=== PATIENT | male | born 1965 | race African-American/Black ===

== ENCOUNTER 2017-10-28 14:49 | Inpatient (IN) | payer OTHER ==
[2017-10-28 17:11] VITALS: BMI 22.2
--- NOTE | 2017-10-28 17:33 | HP ---
CIWA Score - CIWA Score Nausea/Vomitin-No Nausea/No Vomiting Muscle Tremors: 3 Anxiety: 3 Agitation: 3 Paroxysmal Sweats: 3 Orientation: 2-Disoriented Date<2 days Tacttile Disturbances: 1-Very Mild Itch/Numbness Auditory Disturbances: 0-None Visual Disturbances: 0-None Headache: 0-None Present CIWA-Ar Total Score: 15 Admission ROS BHS - HPI Chief Complaint: " I am here for detox/rehab" Allergies/Adverse Reactions: Allergies Allergy/AdvReac Type Severity Reaction Status Date / Time No Known Allergies Allergy Verified 10/28/17 17:26 History of Present Illness: 52 year old with a thirty year history of alcohol and substance abuse presents here today requesting detox from alcohol and cocaine". Pt has a prior episode of detox here at [facility], states he also had rehab at [facility] about 41/2 yrs ago. states he was once sober for 6years when his grandfather passed and he was going to latter day. last drink (crazy horse beer) was 1/2 hour ago Has a hx of HTN. Exam Limitations: No Limitations - Ebola screening Have you traveled outside of the country in the last 21 days: No Have you had contact with anyone from an Ebola affected area: No Have you been sick,other than usual withdrawal symptoms: No Do you have a fever: No - Review of Systems Constitutional: No Symptoms Reported EENT: reports: No Symptoms Reported Respiratory: reports: Cough Cardiac: reports: No Symptoms Reported, Lightheadedness GI: reports: No Symptoms Reported : reports: No Symptoms Reported Musculoskeletal: reports: Other (R leg pain s/p fell 1 hr ago) Integumentary: reports: Dryness, Sweating Neuro: reports: No Symptoms reported Endocrine: reports: [place] Hematology: reports: No Symptoms Reported Psychiatric: reports: Anxious Patient History - Patient Medical History Hx Anemia: Yes Hx Asthma: No Hx Chronic Obstructive Pulmonary Disease (COPD): No Hx Cancer: No Hx Cardiac Disorders: Yes (heart murmur) Hx Congestive Heart Failure: No Hx Hypertension: Yes (Lisinopril 40mg, norvasc 10mg, clonidine 0.1mg) Hx Hypercholesterolemia: No Hx Pacemaker: No HX Cerebrovascular Accident: No Hx Seizures: No Hx Dementia: No Hx Diabetes: No Hx Gastrointestinal Disorders: No Hx Liver Disease: No Hx Genitourinary Disorders: No Hx Sexually Transmitted Disorders: No Hx Renal Disease (ESRD): No Hx Thyroid Disease: No Hx Human Immunodeficiency Virus (HIV): No Hx Hepatitis C: No Hx Depression: Yes Hx Suicide Attempt: Yes (Currently Denies SI/HI. ) Hx Bipolar Disorder: Yes (Haldol 10mg) Hx Schizophrenia: Yes (cogentin ) - Patient Surgical History Past Surgical History: Yes Hx Neurologic Surgery: No Hx Cataract Extraction: No Hx Cardiac Surgery: No Hx Lung Surgery: Yes (b/l chest tube placement x 12 years ago s/p lung collapse) Hx Breast Biopsy: No Hx Abdominal Surgery: No Hx Appendectomy: No Hx Cholecystectomy: No Hx Genitourinary Surgery: No Hx Section: No Hx Orthopedic Surgery: No Hx Hysterectomy: No Anesthesia Reaction: No - PPD History Previous Implant?: Yes (states he took TB tx -) Documented Results: Positive w/o proof PPD to be Administered?: No - Reproductive History Patient is a Female of Child Bearing Age (11 -55 yrs old): No - Smoking Cessation Smoking history: Current every day smoker Have you smoked in the past 12 months: Yes Aproximately how many cigarettes per day: 20 Hx Chewing Tobacco Use: No Initiated information on smoking cessation: Yes 'Breaking Loose' booklet given: 10/28/17 - Substance & Tx. History Hx Alcohol Use: Yes Hx Substance Use: Yes Substance Use Type: Alcohol (Beer 6 (12oz cans)), Cocaine (2 bags twice a wk) Family Disease History - Family Disease History Family Disease History: Other: Grandparent (HTN), Father (gunshot), Mother ( Alcoholism), Sister (Aneurysm) Admission Physical Exam [facility] - Vital Signs Vital Signs: Vital Signs - 24 hr 10/28/17 17:06 Temperature 98.8 F Pulse Rate 110 H Respiratory 18 Rate Blood Pressure 180/110 - Physical General Appearance: Yes: Disheveled, Moderate Distress, Thin, Irritable HEENTM: Yes: Nasal Congestion Respiratory: Yes: Chest Non-Tender, Lungs Clear, No Accessory Muscle Use Neck: Yes: No masses,lesions,Nodules Breast: Yes: Breast Exam Deferred Cardiology: Yes: Regular Rate, S1, S2 Abdominal: Yes: Normal Bowel Sounds, Non Tender Genitourinary: Yes: Within Normal Limits Back: Yes: Normal Inspection Musculoskeletal: Yes: Gait Steady, Other (R leg pain) Extremities: Yes: Within Normal Limits Neurological: Yes: Within Normal Limits Integumentary: Yes: Normal Color, Dry, Warm Lymphatic: Yes: Within Normal Limits - Diagnostic (1) Alcohol dependence with uncomplicated withdrawal Current Visit: Yes Status: Acute (2) Cocaine dependence, uncomplicated Current Visit: Yes Status: Acute (3) HTN (hypertension) Current Visit: Yes Status: Acute (4) Nicotine dependence Current Visit: Yes Status: Acute Cleared for Admission S - Detox or Rehab [facility] Level of Care: Medically Managed Detox Regimen/Protocol: Valium S Breath Alcohol Content Breath Alcohol Content: 0 Urine Drug Screen - Results Drug Screen Negative: No Urine Drug Screen Results: GEREMIAS-Cocaine, BZO-Benzodiazepines
[2017-10-28] MEDS ORDERED: P-EPHED 60MG/TRIPROLIDI 2.5MG TABLET PO PRN (18:01)
[2017-10-28] MEDS ORDERED: LOPERAMIDE HCL 2 MG CAPSULE PO PRN (18:01)
[2017-10-28] MEDS ORDERED: MAGNESIUM CITRATE 300 ML BOTTLE PO PRN (18:01)
[2017-10-28] MEDS ORDERED: diazePAM 5 MG TABLET PO ONE (18:01)
[2017-10-28] MEDS ORDERED: MENTHOL/PHENOL 1 EACH UD MM PRN (18:01)
[2017-10-28] MEDS ORDERED: diazePAM 5 MG TABLET PO PRN (18:01)
[2017-10-28] MEDS ORDERED: MAG HYDROX/AL HYDROX/SIMETH 30 ML UNIT-DOSE CUP PO PRN (18:01)
[2017-10-28] MEDS ORDERED: IBUPROFEN 400 MG TABLET (FP) PO PRN (18:01)
[2017-10-28] MEDS ORDERED: guaiFENesin/D-METHORPHAN HB 10 ML UNIT-DOSE CUPS PO PRN (18:01)
[2017-10-28] MEDS ORDERED: ACETAMINOPHEN 325 MG TABLET (FP) PO PRN (18:01)
[2017-10-28] MEDS ORDERED: MAGNESIUM HYDROX 2400MG/30ML ORAL SUSPENSION 30 ML CUP PO PRN (18:01)
[2017-10-28] MEDS ORDERED: LISINOPRIL 20 MG TABLET (FP) PO ONE (18:30)
[2017-10-28] MEDS ORDERED: amLODIPine BESYLATE 10 MG TABLET (FP) PO ONE (18:30)
[2017-10-28 22:26] LABS: URINE APPEARANCE CLEAR; URINE BILIRUBIN NEGATIVE (NEGATIVE); URINE BLOOD 3+ (NEGATIVE); URINE COLOR STRAW; URINE GLUCOSE (UA) NEGATIVE (NEGATIVE); URINE KETONE NEGATIVE (NEGATIVE); URINE LEUK ESTERASE NEGATIVE (NEGATIVE); URINE NITRITE NEGATIVE (NEGATIVE); URINE UROBILINOGEN NEGATIVE mg/dL (0.2-1.0)
[2017-10-28 22:27] LABS: URINE PROTEIN 1+ (NEGATIVE)
[2017-10-28 22:31] LABS: EPI CELLS RARE /HPF (FEW); URINE BACTERIA RARE /hpf (NONE SEEN)
[2017-10-28] MEDS: THIAMINE HCL 100 MG TABLET (FP) PO SCH (22:31)
[2017-10-28] MEDS: diazePAM 5 MG TABLET PO SCH (22:32)
[2017-10-29] MEDS: diazePAM 5 MG TABLET PO SCH ×3 (05:20→23:10)
[2017-10-29] MEDS ORDERED: cloNIDine HCL 0.1 MG TABLET PO ONE (07:30)
[2017-10-29] MEDS ORDERED: LISINOPRIL 20 MG TABLET (FP) PO SCH (10:00)
[2017-10-29] MEDS ORDERED: amLODIPine BESYLATE 10 MG TABLET (FP) PO SCH (10:00)
[2017-10-29] MEDS ORDERED: PRENATAL VITAMINS W/ FOLIC ACID TABLET (FP) PO SCH (10:00)
[2017-10-29 10:18] LABS: HEMATOCRIT 40.4 % (35.4-49); MCH 28.9 pg (25.7-33.7); MCHC 32.1 g/dl (32.0-35.9); MEAN CELL VOLUME 90.1 fl (80-96); MEAN PLT VOLUME 7.1 fl (7.5-11.1); PLATELET COUNT 414 K/MM3 (134-434); RBC 4.48 M/mm3 (4.00-5.60); WHITE BLOOD COUNT 8.8 K/mm3 (4.0-10.0)
[2017-10-29 10:40] LABS: ALBUMIN 2.9 g/dl (3.4-5.0); ANION GAP 6 (8-16); BLOOD UREA NITROGEN 18 mg/dL (7-18); CALCIUM 9.2 mg/dL (8.5-10.1); CHLORIDE 106 mmol/L (98-107); CO2 30 mmol/L (21-32); CREATININE 0.7 mg/dL (0.7-1.3); GLUCOSE,RANDOM 91 mg/dL (74-106); POTASSIUM 4.2 mmol/L (3.5-5.1); SGOT/AST 14 U/L (15-37); SGPT/ALT 20 U/L (12-78); SODIUM 142 mmol/L (136-145)
--- NOTE | 2017-10-29 10:41 | PN ---
[facility] CIWA - CIWA Score Nausea/Vomitin-No Nausea/No Vomiting Muscle Tremors: 4-Moderate,w/Arms Extend Anxiety: 4-Mod. Anxious/Guarded Agitation: 4-Moderately Restless Paroxysmal Sweats: 1-Minimal Palms Moist Orientation: 0-Oriented Tacttile Disturbances: 3-Moderate Itch/Numb/Burn Auditory Disturbances: 0-None Visual Disturbances: 0-None Headache: 0-None Present CIWA-Ar Total Score: 16 BHS Progress Note (SOAP) Subjective: ANXIETY,SWEATS,FATIGUE. Objective: 10/29/17 10:40 Vital Signs Temperature 97.2 F L 10/29/17 09:07 Pulse Rate 97 H 10/29/17 09:07 Respiratory Rate 20 10/29/17 09:07 Blood Pressure 163/102 10/29/17 09:07 O2 Sat by Pulse Oximetry (%) Laboratory Last Values WBC 8.8 K/mm3 (4.0-10.0) 10/29/17 07:30 RBC 4.48 M/mm3 (4.00-5.60) 10/29/17 07:30 Hgb 13.0 GM/dL (11.7-16.9) 10/29/17 07:30 Hct 40.4 % (35.4-49) 10/29/17 07:30 MCV 90.1 fl (80-96) 10/29/17 07:30 MCH 28.9 pg (25.7-33.7) 10/29/17 07:30 MCHC 32.1 g/dl (32.0-35.9) 10/29/17 07:30 RDW 14.0 % (11.9-15.9) 10/29/17 07:30 Plt Count 414 K/MM3 (134-434) 10/29/17 07:30 MPV 7.1 fl (7.5-11.1) L 10/29/17 07:30 Urine Color Straw 10/28/17 15:18 Urine Appearance Clear 10/28/17 15:18 Urine pH 6.0 (5.0-8.0) 10/28/17 15:18 Ur Specific [place] 1.006 (1.001-1.035) 10/28/17 15:18 Urine Protein 1+ (NEGATIVE) H 10/28/17 15:18 Urine Glucose (UA) Negative (NEGATIVE) 10/28/17 15:18 Urine Ketones Negative (NEGATIVE) 10/28/17 15:18 Urine Blood 3+ (NEGATIVE) H 10/28/17 15:18 Urine Nitrite Negative (NEGATIVE) 10/28/17 15:18 Urine Bilirubin Negative (NEGATIVE) 10/28/17 15:18 Urine Urobilinogen Negative mg/dL (0.2-1.0) 10/28/17 15:18 Ur Leukocyte Esterase Negative (NEGATIVE) 10/28/17 15:18 Urine WBC (Auto) 1 /hpf (3-5) 10/28/17 15:18 Urine RBC (Auto) 8 /hpf (0-3) 10/28/17 15:18 Ur Epithelial Cells Rare /HPF (FEW) 10/28/17 15:18 Urine Bacteria Rare /hpf (NONE SEEN) 10/28/17 15:18 Assessment: 10/29/17 10:41 WITHDRAWAL SX Plan: CONTINUE DETOX
[2017-10-29 10:46] LABS: ALK PHOS 71 U/L (45-117); BILIRUBIN,TOTAL 0.4 mg/dL (0.2-1.0); TOT PROT 6.6 g/dl (6.4-8.2)
--- NOTE | 2017-10-29 12:24 | CONSULT ---
[facility] Psychiatric Consult - Data Date of interview: 10/29/17 Admission source: [facility] Identifying data: Readmission to [facility] for this 52 y/o AA male seeking detox treatment on [address] for alcohol and cocaine (crack) dependence.Patient is single without children,domiciled,unemployed and supported on SSI benefits. Substance Abuse History: Confirmed by patient in this interview >Details in current [facility] report : Smoking history: Current every day smoker. Have you smoked in the past 12 months: Yes. Aproximately how many cigarettes per day: 20. Hx Chewing Tobacco Use: No. Initiated information on smoking cessation: Yes. 'Breaking Loose' booklet given: 10/28/17. - Substance & Tx. History. Hx Alcohol Use: Yes. Hx Substance Use: Yes. Substance Use Type: Alcohol (Beer 6 ( 12oz cans)), Cocaine (2 bags twice a wk) Medical History: Anemia,hypertension,heart murmur and a remote history of lung surgery (atelectasia). Psychiatric History: Patient admits to " a lot of " psychiatric hospitalizations.Recalls past admissions to [facility] and [facility].Onset of mental illness : age 8.Diagnosed, as per self-report,with Paranoid Schizophrenia.Mr Martins reports haldol 10 mg/hs + cogentin 1 mg/hs as his maintenance medications (unknown date of last medication intake).He declares non-adherence to psychiatric OPD care (no current affiliation with providers).Patient admits to using [facility] settings as outlets for medications refills.No reported history of suicide attempts. Physical/Sexual Abuse/Trauma History: Patient denies history of abuse. Additional Comment: Urine Drug Screen Results: GEREMIAS-Cocaine, BZO- Benzodiazepines.Noted. Mental Status Exam - Mental Status Exam Alert and Oriented to: Time, Place, Person Cognitive Function: Grossly Intact Patient Appearance: Unkempt, Disheveled Mood: Nervous, Withdrawn, Anxious Affect: Mood Congruent, Blunted Patient Behavior: Fatigued, Cooperative Speech Pattern: Clear, Appropriate Voice Loudness: Normal Thought Process: Goal Oriented Thought Disorder: Bizarre Hallucinations: Denies Suicidal Ideation: Denies Homicidal Ideation: Denies Insight/Judgement: Poor Sleep: Poorly, Difficulty falling asleep Appetite: Good Muscle strength/Tone: Normal Gait/Station: Normal Psychiatric Findings - Problem List (Delta 1, 2,3) (1) Schizophrenia Current Visit: Yes Status: Chronic (2) Alcohol dependence with uncomplicated withdrawal Current Visit: Yes Status: Acute (3) Cocaine dependence, uncomplicated Current Visit: Yes Status: Acute (4) Nicotine dependence Current Visit: Yes Status: Acute Qualifiers: Nicotine product type: cigarettes Substance use status: in withdrawal Qualified Code(s): F17.213 - Nicotine dependence, cigarettes, with withdrawal (5) Insomnia Current Visit: Yes Status: Acute - Initial Treatment Plan Initial Treatment Plan: Psychoeducation and support provided in this session.Sleep hygiene discussed.Detoxification in progress.Medications : haldol 5 mg po bid + cogentin 0.5 mg po bid.Ordered.Side effects/benefits of each drug are discussed with the patient.Made aware of risk of dystonias,akathisia, dyskinesias,neuroleptic malignant syndrome,cardiovascular adverse events and anticholinergic phenomena (blurred vision,urinary hesitancy,dry mouth, constipation).Mr Martins has endorsed a history of good tolerability and effectivenes from this regimen.Patient insists on resuming treatment with these molecules.Insomnia is addressed with ambien 5 mg po hs prn.Parasomnias discussed.Consent (verbal) given.Observation.Medications verified via survey of recent pharmacy claims (10/24/16).Scripts for 30 day-supply of medications are electronically sent to [facility] on this date.
--- NOTE | 2017-10-29 13:09 | EKG ---
Test Reason : Blood Pressure : / mmHG Vent. Rate : 105 BPM Atrial Rate : 105 BPM P-R Int : 158 ms QRS Dur : 082 ms QT Int : 324 ms P-R-T Axes : 067 067 070 degrees QTc Int : 428 ms SINUS TACHYCARDIA BIATRIAL ENLARGEMENT LEFT VENTRICULAR HYPERTROPHY CANNOT RULE OUT SEPTAL INFARCT , AGE UNDETERMINED ABNORMAL ECG NO PREVIOUS ECGS AVAILABLE Confirmed by MOON REYES MD ([id number]) on 10/29/2017 1:09:35 PM Referred By: KERI Confirmed By:MOON REYES MD
[2017-10-29] MEDS ORDERED: BENZTROPINE MESYLATE 1 MG TABLET (FP) PO SCH (22:00)
[2017-10-29] MEDS ORDERED: ZOLPIDEM TARTRATE 5 MG TABLET PO PRN (22:00)
[2017-10-29] MEDS ORDERED: HALOPERIDOL 5 MG TABLET (FP) PO SCH (22:00)
[2017-10-29] MEDS ORDERED: cloNIDine HCL 0.1 MG TABLET PO PRN (22:00)
[2017-10-29] MEDS: THIAMINE HCL 100 MG TABLET (FP) PO SCH (23:11)
[2017-10-30 09:09] VITALS: BP 151/102; PULSE 102; TEMP 98.1
[2017-10-30] MEDS ORDERED: diazePAM 5 MG TABLET PO SCH (10:00)
[2017-10-30 13:25] LABS: URINE APPEARANCE CLEAR; URINE BILIRUBIN NEGATIVE (NEGATIVE); URINE BLOOD NEGATIVE (NEGATIVE); URINE COLOR LTYELLOW; URINE GLUCOSE (UA) NEGATIVE (NEGATIVE); URINE KETONE NEGATIVE (NEGATIVE); URINE LEUK ESTERASE TRACE (NEGATIVE); URINE NITRITE NEGATIVE (NEGATIVE); URINE UROBILINOGEN NEGATIVE mg/dL (0.2-1.0)
[2017-10-30 13:54] LABS: URINE PROTEIN 1+ (NEGATIVE)
--- NOTE | 2017-10-30 16:11 | DS ---
[facility] Detox Discharge Summary Admission Date: 10/28/17 Discharge Date: 10/30/17 - History Present History: Alcohol Dependence, Cocaine Dependence Additional Comments: PT SIGNED OUT AMA. Pertinent Past History: HTN HX HEART MURMUR ANEMIA - Physical Exam Results Vital Signs: Vital Signs Temperature 98.1 F 10/30/17 09:08 Pulse Rate 102 H 10/30/17 09:08 Respiratory Rate 18 10/30/17 09:08 Blood Pressure 151/102 10/30/17 09:08 O2 Sat by Pulse Oximetry (%) Pertinent Admission Physical Exam Findings: WITHDRAWAL SX Laboratory Last Values WBC 8.8 K/mm3 (4.0-10.0) 10/29/17 07:30 RBC 4.48 M/mm3 (4.00-5.60) 10/29/17 07:30 Hgb 13.0 GM/dL (11.7-16.9) 10/29/17 07:30 Hct 40.4 % (35.4-49) 10/29/17 07:30 MCV 90.1 fl (80-96) 10/29/17 07:30 MCH 28.9 pg (25.7-33.7) 10/29/17 07:30 MCHC 32.1 g/dl (32.0-35.9) 10/29/17 07:30 RDW 14.0 % (11.9-15.9) 10/29/17 07:30 Plt Count 414 K/MM3 (134-434) 10/29/17 07:30 MPV 7.1 fl (7.5-11.1) L 10/29/17 07:30 Sodium 142 mmol/L (136-145) 10/29/17 07:30 Potassium 4.2 mmol/L (3.5-5.1) 10/29/17 07:30 Chloride 106 mmol/L (98-107) 10/29/17 07:30 Carbon Dioxide 30 mmol/L (21-32) 10/29/17 07:30 Anion Gap 6 (8-16) L 10/29/17 07:30 BUN 18 mg/dL (7-18) 10/29/17 07:30 Creatinine 0.7 mg/dL (0.7-1.3) 10/29/17 07:30 Creat Clearance w eGFR > 60 (>60) 10/29/17 07:30 Random Glucose 91 mg/dL (74-106) 10/29/17 07:30 Calcium 9.2 mg/dL (8.5-10.1) 10/29/17 07:30 Total Bilirubin 0.4 mg/dL (0.2-1.0) 10/29/17 07:30 AST 14 U/L (15-37) L 10/29/17 07:30 ALT 20 U/L (12-78) 10/29/17 07:30 Alkaline Phosphatase 71 U/L (45-117) 10/29/17 07:30 Total Protein 6.6 g/dl (6.4-8.2) 10/29/17 07:30 Albumin 2.9 g/dl (3.4-5.0) L 10/29/17 07:30 Urine Color Ltyellow 10/30/17 09:00 Urine Appearance Clear 10/30/17 09:00 Urine pH 6.0 (5.0-8.0) 10/30/17 09:00 Ur Specific [place] 1.018 (1.001-1.035) 10/30/17 09:00 Urine Protein 1+ (NEGATIVE) H 10/30/17 09:00 Urine Glucose (UA) Negative (NEGATIVE) 10/30/17 09:00 Urine Ketones Negative (NEGATIVE) 10/30/17 09:00 Urine Blood Negative (NEGATIVE) 10/30/17 09:00 Urine Nitrite Negative (NEGATIVE) 10/30/17 09:00 Urine Bilirubin Negative (NEGATIVE) 10/30/17 09:00 Urine Urobilinogen Negative mg/dL (0.2-1.0) 10/30/17 09:00 Ur Leukocyte Esterase Trace (NEGATIVE) 10/30/17 09:00 Urine WBC (Auto) 3 /hpf (3-5) 10/30/17 09:00 Urine RBC (Auto) 1 /hpf (0-3) 10/30/17 09:00 Ur Epithelial Cells Rare /HPF (FEW) 10/28/17 15:18 Urine Bacteria Rare /hpf (NONE SEEN) 10/28/17 15:18 RPR Titer Nonreactive (NONREACTIVE) 10/29/17 07:30 - Treatment Hospital Course: Discharged Condition Good - Medication Discharge Medications: Ambulatory Orders Amlodipine Besylate [Norvasc -] 10 mg PO DAILY 10/28/17 Benztropine Mesylate [Cogentin -] 1 mg PO DAILY 10/28/17 Haloperidol [Haldol -] 5 mg PO BID 10/28/17 Lisinopril [Prinivil -] 40 mg PO DAILY 10/28/17 Benztropine Mesylate [Cogentin -] 0.5 mg PO BID #60 tablet 10/29/17 Haloperidol [Haldol -] 5 mg PO BID #60 tablet 10/29/17 - Diagnosis (1) Alcohol dependence with uncomplicated withdrawal Status: Acute (2) Cocaine dependence, uncomplicated Status: Acute (3) HTN (hypertension) Status: Chronic Qualifiers: Hypertension type: essential hypertension Qualified Code(s): I10 - Essential (primary) hypertension (4) Nicotine dependence Status: Acute Qualifiers: Nicotine product type: cigarettes Substance use status: in withdrawal Qualified Code(s): F17.213 - Nicotine dependence, cigarettes, with withdrawal (5) History of anemia Status: Suspected - AMA Did Patient Leave Against Medical Advice: Yes (AMA)
[2017-11-01] MEDS ORDERED: diazePAM 5 MG TABLET PO SCH (10:00)
== END 2017-10-30 08:30 | disposition left against medical advice (07) | DRG 894 ==
LOC: YASAS 14:49 → Y3N 18:55
PROVIDERS: ADMIT Internal Medicine; ATTEND Internal Medicine
PROC: HZ2ZZZZ Detoxification Services for Substance Abuse Treatment (ICD-10-PCS; principal; 2017-10-28)
DX: F10.230 Alcohol dependence with withdrawal, uncomplicated (principal); F14.20 Cocaine dependence, uncomplicated; F17.213 Nicotine dependence, cigarettes, with withdrawal; F20.9 Schizophrenia, unspecified; F31.9 Bipolar disorder, unspecified; I10 Essential (primary) hypertension; G47.00 Insomnia, unspecified; R01.1 Cardiac murmur, unspecified; Z86.2 Personal history of diseases of the blood and blood-forming organs and certain disorders involving the immune mechanism; Z91.5 Personal history of self-harm
CPT/HCPCS: 36415; 71046-TC; 80053; 81003; 81015; 85027; 86593; 93005; 93010; J0735